=== PATIENT | male | born 1970 | race Native Hawaiian/Other Pacific Islander ===

== ENCOUNTER 2022-03-08 20:01 | Emergency (ER) | payer OTHER ==
[~2022-03-08] VITALS: Ht 185.4 cm; Wt 78.0 kg
[2022-03-08 22:24] VITALS: BP 123/78; TEMP 98.3
== END 2022-03-08 22:24 | disposition home or self-care (01) ==
LOC: ED 20:01
PROC: 2W38X1Z Immobilization of Right Upper Extremity using Splint (ICD-10-PCS; principal; 2022-03-08)
DX: S53.491A Other sprain of right elbow, initial encounter (principal); X58.XXXA Exposure to other specified factors, initial encounter; Y93.H9 Activity, other involving exterior property and land maintenance, building and construction; Y92.89 Other specified places as the place of occurrence of the external cause
CPT/HCPCS: 99283; J1885

== ENCOUNTER 2023-04-04 04:58 | Emergency (ER) | payer OTHER ==
[~2023-04-04] VITALS: Ht 185.4 cm; Wt 79.4 kg
[2023-04-04 05:05] VITALS: TEMP 97.4
[2023-04-04 05:33] LABS: PLATELET COUNT 253 K/uL (142-355)
[2023-04-04 05:43] LABS: POTASSIUM 4.3 mmol/L (3.6-5.2)
[2023-04-04 09:00] VITALS: BP 126/85
== END 2023-04-04 09:00 | disposition home or self-care (01) ==
LOC: ED 04:58
PROVIDERS: Family Medicine
DX: R07.9 Chest pain, unspecified (principal); F10.10 Alcohol abuse, uncomplicated; F17.210 Nicotine dependence, cigarettes, uncomplicated
CPT/HCPCS: 36415; 80053; 80320; 84484; 85027; 93005; 96365; 96375; 99284; J2270; J2405; J3411; J3475; J3490

== ENCOUNTER 2023-05-30 11:47 | Observation (INO) | payer OTHER ==
[2023-05-30] VITALS (8 sets, daily range): BP systolic 110–140; BP diastolic 63–89; TEMP 98.7–98.9; Ht 185.4 cm; Wt 81.2 kg
[~2023-05-30] VITALS: Ht 185.4 cm; Wt 81.2 kg
[2023-05-30 12:15] LABS: PLATELET COUNT 247 K/uL (142-355)
[2023-05-30 12:27] LABS: POTASSIUM 3.4 mmol/L (3.6-5.2)
[2023-05-30] MEDS ORDERED: LISI20TA11 PO (18:05)
[2023-05-30] MEDS ORDERED: ATOR20TA2 PO (18:05)
[2023-05-30] MEDS ORDERED: CARV6.25 PO (18:05)
[2023-05-30] MEDS ORDERED: PROAIR HFA108 MCG/AC INH (18:07)
[2023-05-31 03:48] VITALS: BP 129/84; TEMP 98.1
[2023-05-31 08:00] VITALS: BP 148/94; TEMP 99
[2023-05-31 08:55] LABS: PLATELET COUNT 223 K/uL (142-355)
[2023-05-31 09:14] LABS: POTASSIUM 3.8 mmol/L (3.6-5.2)
[2023-05-31 12:00] VITALS: BP 145/75; TEMP 98.9
[2023-05-31 16:00] VITALS: BP 153/84; TEMP 98.7
== END 2023-05-31 18:53 | disposition home or self-care (01) ==
LOC: ED 11:47 → MED/SURG 13:18
PROVIDERS: ADMIT Family Medicine; ATTEND Family Medicine
DX: E87.1 Hypo-osmolality and hyponatremia (principal); F10.10 Alcohol abuse, uncomplicated; K70.30 Alcoholic cirrhosis of liver without ascites; I95.1 Orthostatic hypotension; I50.9 Heart failure, unspecified; F32.A Depression, unspecified; R19.7 Diarrhea, unspecified; D64.89 Other specified anemias; R25.1 Tremor, unspecified; R42 Dizziness and giddiness; R10.9 Unspecified abdominal pain; R53.1 Weakness; F17.210 Nicotine dependence, cigarettes, uncomplicated; I11.0 Hypertensive heart disease with heart failure
CPT/HCPCS: 36415; 36600; 80053; 81002; 82150; 82805; 83605; 83690; 83735; 84100; 85027; 86140; 96360; 96361; 96365; 96367; 96375; 99221; 99284; G0378; J2060; J3475; J3480; J3490